=== PATIENT | female | born 1945 | race Caucasian/White ===

== ENCOUNTER 2017-08-29 01:15 | Observation (INO) | payer MEDICARE ==
[~2017-08-29] VITALS: Ht 162.6 cm; Wt 77.6 kg
[~2017-08-29 01:15] MED LIST: CALCIUM 500 +1 EAC5 PO; MAGNESIUM100 MG; TRIAMTERENE/HCT1 CA1 PO; ZOFRAN ODT4 MG PO
[2017-08-29 01:16] VITALS: BP 165/40
[2017-08-29 02:01] LABS: ABSOLUTE EOSINOPHILS 0.1 thou/uL (0.0-0.7); ABSOLUTE LYMPHOCYTES 2.1 thou/uL (0.8-5.3); ABSOLUTE MONOCYTES 0.6 thou/uL (0.0-1.2); ABSOLUTE NEUTROPHILS 8.5 thou/uL (1.6-8.1); BASOPHILS 0.3 %; CALCIUM 9.4 mg/dL (8.5-10.1); CREATININE 0.8 mg/dL (0.6-1.3); EOSINOPHILS 0.6 %; HEMATOCRIT 39.9 % (37.0-47.0); HEMOGLOBIN 13.3 gm/dL (12.0-15.0); LYMPHOCYTES 18.5 %; MCH 28.6 pg (26.0-34.0); MCHC 33.4 g/dL (28.0-37.0); MCV 85.5 fL (80.0-100.0); MONOCYTES 5.2 %; MPV 10.1 fl. (7.2-11.1); NUCLEATED RBCS 0 /100WBC; PLATELET COUNT* 199 thou/uL (150-400); POLYS 75.4 %; POTASSIUM 3.5 mmol/L (3.5-5.1); RBC 4.66 mil/uL (4.20-5.00); RDW-CV 13.5 % (10.5-14.5); WBC 11.2 thou/uL (4.0-11.0)
[2017-08-29 02:06] LABS: ALBUMIN 3.9 g/dL (3.4-5.0); TOTAL BILIRUBIN 0.5 mg/dL (<0.1-1.0); TOTAL PROTEIN 7.6 g/dL (6.4-8.2)
[2017-08-29 04:10] VITALS: BP 126/72
[2017-08-29 04:35] VITALS: BP 137/43
[2017-08-29] MEDS ORDERED: LISINOPRIL10 MG PO (04:48)
[2017-08-29] MEDS ORDERED: NIACIN50 MG PO (04:51)
[2017-08-29] MEDS ORDERED: PRINIVIL10 MG PO (04:52)
--- NOTE | 2017-08-29 05:20 | NUR ---
PT ARRIVED AT 0435. SLEEPY AROUSABLE UNSTEADY GAIT. CALL LIGHT IN REACH. BED ALARM ON. 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 PT STATES TOLBERT SINCE LAST NIGHT. ROOM QUIET AND DARKENED. NO NAUSIA AT THIS TIME. TELEMETRY SHOWS SR.
[2017-08-29] MEDS ORDERED: MOTION SICKNESS25 M1 PO (07:44)
[2017-08-29 14:05] VITALS: BP 137/69
--- NOTE | 2017-08-29 14:09 | EKG ---
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1945 Requested By: Cheikh Block Order Number: [id number] Bella MD: Gerardo Hylton Measurements Intervals [place] Rate: 73 P: -49 MS: 153 QRS: 8 QRSD: 96 T: -76 QT: 400 QTc: 441 Interpretive Statements Sinus or ectopic atrial rhythm Borderline repolarization abnormality Compared to ECG 12/26/2011 22:15:06 no change Electronically Signed On 08-29-2017 14:09:28 CDT by Gerardo Hylton [email or web address] <ELECTRONICALLY SIGNED> By: Gerardo Hylton MD, [facility] 08/29/17 1409 0123 0123 Gerardo Hylton MD, [facility] /EPI
--- NOTE | 2017-08-29 14:12 | EKG ---
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
[2017-08-29 16:49] VITALS: BP 140/57
[2017-08-29 20:00] VITALS: BP 162/69
[2017-08-29 21:09] LABS: GLYCOHEMOGLOBIN (HGB A1C) 5.3 % (4.8-5.6)
[2017-08-30] VITALS: BP 145/65
[2017-08-30 04:00] VITALS: BP 142/65
--- NOTE | 2017-08-30 04:29 | NUR ---
ASSUMED PT CARE AT 1930. ASSESSMENT COMPLETED CHARTED. NO N/V NOTED, HEADACHE NOTED AT BEGINNING OF SHIFT, GAVE TYLENOL PER P.O. ROOM IS QUIET AND DARK, PT RESTING ALL NIGHT. ABLE TO MAKE NEEDS KNOWN, WILL CONTINUE TO MONITOR.
[2017-08-30 05:18] LABS: HEMATOCRIT 40.9 % (37.0-47.0); HEMOGLOBIN 13.5 gm/dL (12.0-15.0); MCH 28.9 pg (26.0-34.0); MCHC 33.1 g/dL (28.0-37.0); MCV 87.5 fL (80.0-100.0); MPV 10.3 fl. (7.2-11.1); RBC 4.67 mil/uL (4.20-5.00); RDW-CV 13.7 % (10.5-14.5); WBC 8.1 thou/uL (4.0-11.0)
[2017-08-30 05:54] LABS: ANION GAP 6 mmol/L (7-16); BUN 16 mg/dL (7-18); CHLORIDE 107 mmol/L (98-107); CO2 28 mmol/L (21-32); CREATININE 0.9 mg/dL (0.6-1.3); GLUCOSE 97 mg/dL (70-99); MAGNESIUM 2.1 mg/dL (1.8-2.4); SODIUM 141 mmol/L (136-145)
[2017-08-30 06:27] LABS: CHOLESTEROL 231 mg/dL (<200); HDL CHOLESTEROL 50 mg/dL (>40); LDL CHOLESTEROL 152 mg/dL (<100); TC:HDL 4.6 Ratio (Not establshd); TRIGLYCERIDE 145 mg/dL (<150); VLDL 29 mg/dL (<40)
[2017-08-30 06:31] LABS: SERUM ASSESSMENT Clear
[2017-08-30 08:27] VITALS: BP 143/55
[2017-08-30] MEDS ORDERED: ATORVASTATIN CA20 MG PO (08:44)
[2017-08-30] MEDS ORDERED: ASPIRIN81 M2 PO (08:44)
--- NOTE | 2017-08-30 09:40 | CON ---
[address] [address] CONSULTATION Name: DUKE BOYD Room: [address] Junito Nguyen#: [id number] Admission: 08/29/17 Attend Phys: John Srinivasan, Discharge: Date of : 49 Report #: [id number] THIS REPORT FOR: //name// CC: Amaury Moshe John Srinivasan DATE OF SERVICE: 08/29/2017 HISTORY OF PRESENT ILLNESS: This is a 72-year-old female patient who was evaluated for acute onset of dizziness yesterday. It started spontaneously and it is severe. It is associated with some headache. She is afebrile. She had episode of dizziness before, but it has never been that severe. She denies any history of strokes in the past. REVIEW OF SYSTEMS: A 14-point review of systems was carried out. She indicates she was not stressed out before this happened, but now she is stressed out. She takes her medication on a regular basis and it stays about 140 systolic. She does have a history of hypertension and high cholesterol. She is not complaining of any new eye, cardiac, respiratory, , musculoskeletal, constitutional, dermatological, hematological, psychiatric, throat, allergic symptom associated with present symptomatology. She does have nausea and vomiting associated with it. This was her relevant 14-point review of systems. PAST MEDICAL HISTORY: Positive for dizziness, but not as severe. FAMILY HISTORY: Negative for early age stroke. SOCIAL HISTORY: She indicates that she does not smoke or drink alcohol. PHYSICAL EXAMINATION: Indicate that the patient is alert, responsive, able to follow simple and complex commands. Her speech, concentration, fund of knowledge and memory is unremarkable. Cranial nerve examination 2-12 looks unremarkable. Strength, sensation, reflexes and tone is symmetrical. I could not have a very good look at the patient's fundus. She has no meningeal sign. There is no carotid bruit. She is a reasonably well-developed individual who does not have any dysmorphic features of eyes, ears and face. Her vision and hearing look adequate. Her pulses are palpable. She has no edema, cyanosis or jaundice. Cardiac examination is unremarkable. No respiratory difficulty or rhonchi was noticed on either side. Blood pressure is 137/43, respirations 18, pulse is 74, temperature is 98. LABORATORY DATA: White count is increased at 11.2. She did have a CT scan of the head, which [place] [address] CONSULTATION Name: DUKE BOYD Room: [address] Patrick#: [id number] Admission: 08/29/17 Attend Phys: John Srinivasan, Discharge: Date of : 49 Report #: [id number] IMPRESSION: It is not clear what the etiology of the patient's symptoms is, but she needs further workup. I will do an MRI of the brain or MRA to exclude any pathology there. We will probably repeat the white count. If her symptoms continue, we may have to consider spinal tap in this patient, especially because her white count is somewhat high, but she does not really have any signs of meningitis. I discussed all of that with the patient and we will start evaluation. RECOMMENDATIONS: 1. We will get an MRI. 2. We will get an MRA. 3. We will get some additional workup. 4. After this workup is available and depending upon how the patient does, we need to see if we need to do any further workup, especially any spinal tap is necessary in this patient. Dr. Castellanos will follow up this patient with you from tomorrow. Thank you very much for this referral. <ELECTRONICALLY SIGNED> By: Marcos Pollard MD 08/30/17 0940 0925 1542Panne Pollard MD /nt
--- NOTE | 2017-08-30 10:00 | NUR ---
VSS. AFEBRILE. C/O OF FEELING QUEASY WHEN STANDING UP. PT C/O OF HEADACHE REQUESTED TYLENOL. RATED PAIN 4/10. AT REASSESSMENT PAIN 4/10 AND RIGHT AFTER PT. MEDICATIONS ADMININSTERED PER APR.
[2017-08-30 11:47] VITALS: BP 143/55
--- NOTE | 2017-08-30 12:04 | NUR ---
OT EVAL ATTEMPTED, HOWEVER, PT REPORTS SHE IS IND WITH ALL ADLS AND MOBILITY WITH NO CONCERNS. PT REPORTS NO EQUPMENT NEEDS AT THIS TIME AND HAS SUPPORTIVE GRANDSON AND SIBLINGS NEDED UPON DISCHARGE. DISCUSS STATUS WITH PT AND RN, BOTH AGREEABLE TO OT SIGN-OFF.
--- NOTE | 2017-08-30 14:09 | NUR ---
MET WITH PT, SISTER AND PHAN TO DISCUSS HOME SITUATION/DC PLANNING. PT LIVES ALONE, IS NORMALLY INDEPENDENT AND ACTIVE. USES NO EQUIPMENT. PLANS TO GO HOME TODAY. PER NURSE, AWAITING NEURO TO ROUND. PT HAS ORDER FOR [facility]. DISCUSSED WITH PT, SHE HAS NEVER BEEN. WILL DISCUSS WITH NEURO
--- NOTE | 2017-08-30 15:00 | NUR ---
RECEIVED DISCHARGE ORDERS. ALL CONSULTS OKAY WITH DISCHARGE. RECEIVED REFERRAL FROM [facility]UR[facility] FOR [facility]. 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 ALL BELONGINGS LEFT WITH PT.
--- NOTE | 2017-08-30 18:43 | 2DMMODE ---
[place] [address] 2 D/M-MODE ECHOCARDIOGRAM Name: DUKE BOYD Room: [address] Junito Nguyen#: [id number] Admission: 08/29/17 Attend Phys: John Piña Discharge: 08/30/17 Date of : 49 Date of Service: 08/30/17 1843 Report #: [id number] THIS REPORT FOR: //name// APPROVED REPORT Study performed: 08/30/2017 11:12:11 EXAM: Comprehensive 2D, Doppler, and color-flow Echocardiogram Patient Location: In-Patient Room #: [facility] Status: routine BSA: 1.83 HR: 64 bpm BP: 143/55 mmHg Rhythm: NSR Other Information Study Quality: Good Indications CVA/TIA Echo Enhancing Agent Indication: Rule out Shunt Agent(s) / Amount(s) Used: Agitated Saline 10 cc 2D Dimensions LVEF(%): 58.83 (>50%) IVSd: 9.59 (7-11mm) LVOT Diam: 18.75 (18-24mm) LVDd: 42.53 mm PWd: 8.73 (7-11mm) Ascending Ao: 28.34 (22-36mm) LVDs: 29.40 (25-40mm) Aortic Root: 30.61 mm Zavaleta's LVEF: 58.83 % Volumes Left Atrial Volume (Systole) LA ESV Index: 28.90 mL/m2 Aortic Valve AoV Peak Igor.: 1.35 m/s AO Peak Gr.: 7.30 mmHg LVOT Max P.58 mmHg AO Mean Gr.: 4.27 mmHg LVOT Mean P.59 mmHg LVOT Max V: 0.95 m/s AO V2 VTI: 31.33 cm LVOT Mean V: 0.57 m/[place] [address] 2 D/M-MODE ECHOCARDIOGRAM Name: DUKE BOYD Room: [address] Junito Nguyen#: [id number] Admission: 08/29/17 Attend Phys: John Piña Discharge: 08/30/17 Date of : 49 Date of Service: 08/30/17 1843 Report #: [id number] SHELLY (VTI): 1.97 cm2 LVOT V1 VTI: 22.35 cm Mitral Valve E/A Ratio: 0.92 MV Decel. Time: 211.34 ms MV E Max Igor.: 0.77 m/s MV PHT: 61.29 ms MVA (PHT): 3.59 cm2 TDI E/Lateral E': 7.00 E/Medial E': 9.63 Medial E' Igor.: 0.08 m/s Lateral E' Igor.: 0.11 m/s Pulmonary Valve PV Peak Igor.: 0.94 m/s PV Peak Gr.: 3.52 mmHg Left Ventricle The left ventricle is normal size. There is normal LV segmental wall motion. There is normal left ventricular wall thickness. Left ventricular systolic function is normal. The left ventricular ejection fraction is within the normal range. LVEF is 55-60%. The left ventricular diastolic function is normal. Right Ventricle The right ventricle is normal size. The right ventricular systolic function is normal. Atria The left atrium size is normal. Interatrial septum is intact without evidence of ASD or PFO. The right atrium size is normal. Aortic Valve The aortic valve is normal in structure. Trace aortic regurgitation. There is no aortic valvular stenosis. Mitral Valve The mitral valve is normal in structure. Trace mitral regurgitation. No evidence of mitral valve stenosis. Tricuspid Valve The tricuspid valve is normal in structure. Unable to assess PA pressure. Trace tricuspid regurgitation. Pulmonic Valve The pulmonary valve is normal in structure. [place] [address] 2 D/M-MODE ECHOCARDIOGRAM Name: OLIVERDUKE Room: [address] Patrick#: [id number] Admission: 08/29/17 Attend Phys: John Piña Discharge: 08/30/17 Date of : 49 Date of Service: 08/30/17 1843 Report #: [id number] valvular regurgitation. Great Vessels The aortic root is normal in size. IVC is normal in size and collapses with >50% inspiration Pericardium There is no pericardial effusion. <Conclusion> The left ventricle is normal size. There is normal left ventricular wall thickness. Left ventricular systolic function is normal. The left ventricular ejection fraction is within the normal range. LVEF is 55-60%. The left ventricular diastolic function is normal. The right ventricle is normal size. The left atrium size is normal. The aortic valve is normal in structure. Trace aortic regurgitation. There is no aortic valvular stenosis. The mitral valve is normal in structure. The tricuspid valve is normal in structure. IVC is normal in size and collapses with >50% inspiration There is no pericardial effusion. There is normal LV segmental wall motion. <ELECTRONICALLY SIGNED> By: Thaddeus Kellogg MD, FACC 08/30/171842 42 42 Thaddeus Kellogg MD, FACC /INF
== END 2017-08-30 15:15 | disposition home or self-care (01) ==
LOC: M.ERS 01:15 → M.TBA-ER 03:46 → M.2W 03:46
PROVIDERS: Internal Medicine; Personal Emergency Response Attendant; ADMIT Family Medicine
DX: R42 Dizziness and giddiness (principal); I49.5 Sick sinus syndrome; I10 Essential (primary) hypertension; E78.5 Hyperlipidemia, unspecified; D72.829 Elevated white blood cell count, unspecified; Z90.49 Acquired absence of other specified parts of digestive tract

== ENCOUNTER → 2018-04-06 | Outpatient (CLI) | payer MEDICARE ==
[~2018-04-06] MED LIST changes: +ASPIRIN81 M2 PO; +ATORVASTATIN CA20 MG PO; +LISINOPRIL10 MG PO; +MOTION SICKNESS25 M1 PO; +NIACIN50 MG PO; +PRINIVIL10 MG PO
== END ==
LOC: M.RAD 09:41
DX: Z12.31 Encounter for screening mammogram for malignant neoplasm of breast (principal)

== ENCOUNTER → 2019-04-11 | Outpatient (CLI) | payer MEDICARE | LOC: M.RAD 07:41 | DX: Z12.31 Encounter for screening mammogram for malignant neoplasm of breast (principal) ==

== ENCOUNTER → 2020-05-16 | Outpatient (CLI) | payer MEDICARE | LOC: M.RAD 04-08 09:00 | PROVIDERS: ATTEND Family Medicine | DX: Z12.31 Encounter for screening mammogram for malignant neoplasm of breast (principal); N63.20 Unspecified lump in the left breast, unspecified quadrant ==